=== PATIENT | male | born 1980 | race Caucasian/White ===

== ENCOUNTER 2020-09-01 14:21 | Emergency (ER) | payer OTHER, SELFPAY ==
--- NOTE | ~2020-09-01 | XR_ITS ---
XR finger 4th RT min 2V 09/01/2020 14:38 Indication: Right fourth finger pain after trauma Procedure: 3 views right fourth finger Comparison: No prior studies for comparison. Findings: There is minimally displaced comminuted tuft fracture right fourth distal phalanx. There is associated soft tissue swelling. No foreign bodies. Impression: 1: Minimally displaced comminuted tuft fracture right fourth distal phalanx. Reviewed, dictated and finalized at location A. Impression: 1: Minimally displaced comminuted tuft fracture right fourth distal phalanx.
[2020-09-01 14:27] VITALS: BP 160/91; PULSE 101; RESP 16; TEMP 36.1; O2SAT 98
--- NOTE | 2020-09-01 14:29 | ED.WOUNDLAC ---
HPI - Wound/Laceration General Chief Complaint: Wound/Laceration Stated Complaint: cut right fourth finger Time Seen by Provider: 09/01/20 14:25 Source: patient, RN notes reviewed and old records reviewed Mode of arrival: ambulatory Limitations: no limitations History of Present Illness HPI narrative: 40 year old male who presents to [facility] with complaints of getting his right 4th finger caught in a hinge of a boat ladder 20 minutes prior to arrival.Patient has swelling to the distal aspect of his right 4th finger with subungual hematoma noted to distal nail, 1 cm laceration to distal fat pad region. Patient very diaphoretic upon arrival stating pain to his finger 10/10, has not taken any OTC medication, towel wrapped around his right 4th finger with moderate of bleeding noted. Patient is right hand dominate and reports that his tetanus shot is not up to date. Onset (ago): minute(s) (20 minutes prior to arrival) Place: work Patient tetanus UTD: No Context: accidental Associated symptoms: pain Treatments prior to arrival: bandage Related Data Allergies Allergy/AdvReac Type Severity Reaction Status Date / Time No Known Allergies Allergy Mild Verified 09/01/20 14:34 Review of Systems Review of Systems: Narrative: CONSTITUTIONAL: Denies fever, chills, or sweats. EYES: Denies visual changes, redness, or discharge. ENT: Denies rhinorrhea, congestion, sore throat, or otalgia. CARDIOVASCULAR: Denies chest pain, palpitations, or edema. RESPIRATORY: Denies cough or dyspnea. GASTROINTESTINAL: Denies abdominal pain, nausea, vomiting, or diarrhea. GENITOURINARY: Denies dysuria or hematuria. SKIN: Denies rash or itching.laceration to distal fat fat pad region of 4th finger, subungual hematoma to nail with swelling and bruising distal finger. MUSCULOSKELETAL: Denies back pain, joint pain, or myalgia.Pain to the tip of right 4th finger NEUROLOGIC: Denies headache, numbness, or weakness. PSYCHIATRIC: Positive history of anxiety or depression. All systems reviewed & are unremarkable except as noted in HPI and below PMFSH Past Medical History Medical History (Updated 09/01/20 @ 15:43 by Nellie Lux NP) Ankle fracture Anxiety Right arm fracture Surgical History Surgical History (Updated 09/01/20 @ 14:36 by Nellie Lux NP) History of open heart surgery age 8 atrial septal defect Family History Family History (Updated 09/01/20 @ 17:03 by Nellie Lux NP) Father Cerebrovascular accident Sibling Hypertension Mother Breast cancer Social History Social History (Updated 09/01/20 @ 16:13 by Nellie Lux NP) Smoking status: Never smoker Alcohol intake: current Alcohol use details: seldom Substance use: former Substance use type: crack/cocaine and opiates Living arrangements: with family Gender identity (if verbalized by the patient): Male Comments At time of signature, agree with nursing past medical, surgical, social and family history. There is no relevant family history pertinent to the presenting complaint Exam Narrative: Exam Narrative: GENERAL: Well-appearing, well-nourished, and in no acute distress. HEAD: Normocephalic, atraumatic. EYES: PERRLA and EOMI. ENT: Nares clear, no rhinorrhea or epistaxis. Mucous membranes moist. NECK: Supple. no lymphadenopathy CHEST: Clear to auscultation. No respiratory distress. HEART: Regular rate and rhythm. No murmur heard. Normal peripheral pulses. ABDOMEN: Soft, nontender, nondistended, normal active bowel sounds. EXTREMITIES: Normal range of motion. No edema. SKIN: Warm, dry, no rash.1cm laceration to distal tip of right 4th finger, contusion with swelling and bruising to 4th right finger with subungual hematoma present to nail, strong right radial pulse present, pain to distal region of right 4th finger. hand is warm with no tingling or numbness to his right 4th finger voiced. NEURO: No focal deficits. Alert and oriented x3. Course V
[2020-09-01] MEDS: TETANUS,DIPHTHERIA,AC PERTUSSIS ADULT (0.5 ML) BOOSTRIX IM (15:20)
[2020-09-01] MEDS: cefTRIAXone 1 GM VIAL IM (15:41)
[2020-09-01] MEDS: LIDOCAINE HCL 1% LOCAL INJ 20 ML VIAL 2.1 ML IM (15:42)
== END 2020-09-01 16:03 | disposition home or self-care (01) ==
PROVIDERS: Emergency Provider Registered Nurse
DX: S62.634B Displaced fracture of distal phalanx of right ring finger, initial encounter for open fracture (principal); S60.141A Contusion of right ring finger with damage to nail, initial encounter; X58.XXXA Exposure to other specified factors, initial encounter; Z23 Encounter for immunization
CPT/HCPCS: 12001; 11740; 29130; 73140; 90471; 90715; 96372; 99213; G0463; J0696

== ENCOUNTER 2021-08-01 01:27 | Emergency (ER) | payer OTHER, SELFPAY ==
[2021-08-01 01:45] VITALS: BP 145/102; PULSE 117; RESP 20; TEMP 37; O2SAT 98
--- NOTE | 2021-08-01 01:48 | ED.NAVMDI ---
HPI - Nausea/Vomiting/Diarrhea General Chief complaint: Nausea/Vomiting/Diarrhea Stated complaint: n/v Time Seen by Provider: 08/01/21 01:37 Source: patient Mode of arrival: ambulatory Limitations: no limitations History of Present Illness HPI Narrative: Patient is a 41-year-old male complaining of nausea vomiting for the past 3 to 4 days. Patient describes his vomitus is nonbilious nonbloody. Patient states that he was having abdominal discomfort, lower earlier but now resolved. Denies any chest pain, shortness of breath, diarrhea, urinary symptoms, fever or chills Related Data Allergies Allergy/AdvReac Type Severity Reaction Status Date / Time No Known Allergies Allergy Mild Verified 09/01/20 14:34 Review of Systems Review of Systems: All systems reviewed & are unremarkable except as noted in HPI and below Constitutional: Constitutional: Denies body ache(s), Denies chills, Denies excessive sweating, Denies fatigue, Denies fever(s), Denies headache(s), Denies lethargy, Denies malaise, Denies weakness and Denies weight loss Eyes: Eyes: Denies blurry vision, Denies change in vision and Denies loss of vision ENT: Denies dizziness, Denies ear discharge, Denies headache(s), Denies lip swelling, Denies epistaxis, Denies nasal congestion, Denies neck pain, Denies throat swelling and Denies tongue swelling Cardiovascular: Cardiovascular: Denies chest pain, Denies chest pain at rest, Denies chest pain with activity, Denies diaphoresis, Denies rapid heart rate, Denies edema, Denies irregular heart rhythm, Denies lightheadedness, Denies palpitations, Denies dyspnea and Denies dyspnea on exertion Respiratory: Respiratory: Denies chest congestion, Denies cough, Denies hemoptysis, Denies dyspnea and Denies dyspnea on exertion Gastrointestinal: Gastrointestinal: Denies abdominal pain, Denies melena, Denies hematochezia, Denies diarrhea and Denies hematemesis Musculoskeletal: Musculoskeletal: Denies abnormal gait, Denies deformity, Denies joint swelling, Denies limited range of motion, Denies neck pain and Denies numbness Neurologic: Denies Abnormal speech present, Denies abnormal gait, Denies confusion, Denies dizziness, Denies headache(s), Denies focal weakness, Denies loss of vision, Denies numbness, Denies Other visual disturbances, Denies Sensory deficit (Neuro) and Denies weakness Psychiatric: Psychiatric: Denies confusion, Denies depression, Denies auditory hallucinations, Denies homicidal ideation and Denies suicidal ideation Endocrine: Endocrine: Denies cold intolerance, Denies excessive sweating, Denies fatigue, Denies heat intolerance and Denies palpitations Hematologic/Lymphatic: Hematologic/Lymphatic: Denies easy bleeding and Denies easy bruising Allergic/Immunologic: Allergic/Immunologic: Denies lip swelling, Denies throat swelling and Denies tongue swelling PMFSH Past Medical History Medical History Ankle fracture Anxiety Right arm fracture Surgical History Surgical History History of open heart surgery age 8 atrial septal defect Family History Family History Father Cerebrovascular accident Sibling Hypertension Mother Breast cancer Social History Social History Smoking status: Never smoker Alcohol intake: current Alcohol use details: seldom Substance use: former Substance use type: crack/cocaine and opiates Gender identity (if verbalized by the patient): Male Exam Const: General: cooperative, healthy appearing, comfortable, no acute distress, well developed, alert and awake; No confusion Orientation/consciousness: oriented to person, oriented to place, oriented to time, patient oriented x3 and No confusion Limitations: no limitations HENMT: Head: normal to inspection,
[2021-08-01] MEDS: SODIUM CHLORIDE 0.9% IV 1,000 ML 999 ML IV CONT (01:58)
[2021-08-01] MEDS: ONDANSETRON INJ 4 MG/2 ML VIAL IV PUSH (01:58)
[2021-08-01 02:08] LABS: Basophils Absolute Auto 0.1 K/mm3 (0.0-0.1); Basophils Percent Auto 0.3 % (0.2-1.2); Eosinophils Percent Auto 0.1 % (0-4.4); Hematocrit 40.7 % (42.0-52.0); Hemoglobin 14.6 g/dL (14.0-18.0); Immature Granulocyte Absolute 0.04 K/mm3 (0.00-0.031); Immature Granulocyte Percent A 0.3 % (0-0.5); Lymphocytes Absolute Auto 1.27 K/mm3 (0.9-3.2); Lymphocytes Percent Auto 8.7 % (18.3-44.2); Mean Corpuscular HGB Conc 35.9 g/dl (32-36); Mean Corpuscular Hemoglobin 35.9 pg (26-34); Mean Platelet Volume 9.9 fl (7.4-10.4); Monocytes Absolute Auto 1.2 K/mm3 (0.1-0.6); Neutrophils Percent Auto 82.6 % (45.5-73.1); Platelet Count Result 364 k/mm3 (150-375); Red Blood Count 4.07 M/mm3 (4.6-6.20); White Blood Count 14.6 K/mm3 (4.5-10.0)
[2021-08-01] MEDS: FAMOTIDINE 20 MG TABLET 40 MG PO (02:18)
[2021-08-01 02:38] LABS: Alanine Aminotransferase 45 U/L (4-50); Albumin Level 4.8 g/dL (3.5-5.1); Alkaline Phosphatase 87 U/L (38-126); Anion Gap 12 mmol/L (8-16); Aspartate Amino Transferase 51 U/L (17-59); Bilirubin,Total 0.8 mg/dL (0.2-1.3); Blood Urea Nitrogen 11 mg/dL (9-20); Calcium 9.6 mg/dL (8.4-10.2); Carbon Dioxide 31 mmol/L (22-30); Chloride 97 mmol/L (98-107); Estimated CRCL calculation 140 ml/min; Estimated Glomerular Filt Rate > 60; Glucose 132 mg/dL (65-110); Lipase 26 U/L (23-300); Potassium 3.4 mmol/L (3.4-5.0); Sodium 140 mmol/L (137-145)
[2021-08-01 03:29] VITALS: BP 128/79; PULSE 80; RESP 18; O2SAT 100
[2021-08-01] MEDS: PANTOPRAZOLE SODIUM IV 40 MG VIAL IV PUSH (04:01)
[2021-08-01 04:09] VITALS: BP 126/87; PULSE 94; RESP 16; O2SAT 100
== END 2021-08-01 04:10 | disposition home or self-care (01) ==
PROVIDERS: Emergency Provider Emergency Medicine
DX: R11.2 Nausea with vomiting, unspecified (principal)
CPT/HCPCS: 36415; 80053; 83690; 85025; 96361; 96374; 96375; 99284; A9270; C9113; J2405; J7030

== ENCOUNTER 2022-06-01 13:50 | Emergency (ER) | payer BC, SELFPAY ==
[2022-06-01 14:01] VITALS: BP 138/98; PULSE 114; RESP 20; TEMP 35.9; O2SAT 98
[2022-06-01] MEDS: ONDANSETRON HCL ODT 4 MG TABLET SUBLINGUAL (14:15)
--- NOTE | 2022-06-01 14:26 | ED.NAVMDI ---
HPI - Nausea/Vomiting/Diarrhea General Chief complaint: Nausea/Vomiting/Diarrhea Stated complaint: Nausea/Vomiting Time Seen by Provider: 06/01/22 14:10 Source: patient Mode of arrival: ambulatory Limitations: no limitations History of Present Illness HPI Narrative: 42-year-old male presents with complaint of nausea vomiting for the past 3 hours. Reports for the past 3 days he has been started to feel nauseated when eating. Reports that he has a similar episode of this happening 6 months ago. States that he has been getting indigestion for the past 6 months and has been treating it at home with Nexium and Pepcid. Does not have a primary care physician. States when he was seen in the ER he was given Zofran to treat nausea and he has ran out. Denies abdominal pain. He reports when he was unable to drink water today due to vomiting he became concerned and came to the [facility] for a refill for his Zofran. Patient is well-appearing. No vomiting while at [facility]. All systems reviewed and negative except as noted above. Related Data Allergies Allergy/AdvReac Type Severity Reaction Status Date / Time No Known Allergies Allergy Mild Verified 06/01/22 14:01 Review of Systems Review of Systems: CONSTITUTIONAL: Denies fever, chills, or sweats. EYES: Denies visual changes, redness, or discharge. ENT: Denies rhinorrhea, congestion, sore throat, or otalgia. CARDIOVASCULAR: Denies chest pain, palpitations, or edema. RESPIRATORY: Denies cough or dyspnea. GASTROINTESTINAL: Denies abdominal pain . Reports nausea, vomiting, indigestion. Denies diarrhea. GENITOURINARY: Denies dysuria or hematuria. SKIN: Denies rash or itching. MUSCULOSKELETAL: Denies back pain, joint pain, or myalgia. NEUROLOGIC: Denies headache, numbness, or weakness. PSYCHIATRIC: Denies anxiety or depression. All other systems reviewed are negative, except as documented in HPI. [facility] Past Medical History Medical History Ankle fracture Anxiety Right arm fracture Surgical History Surgical History History of open heart surgery age 8 atrial septal defect Family History Family History Father Cerebrovascular accident Sibling Hypertension Mother Breast cancer Social History Social History Smoking status: Never smoker Alcohol intake: current Alcohol use details: seldom Substance use: former Substance use type: crack/cocaine and opiates Living arrangements: with family Gender identity (if verbalized by the patient): Male Comments At time of signature, agree with nursing past medical, surgical, social and family history. There is no relevant family history pertinent to the presenting complaint. Exam Narrative: GENERAL: This is a well-nourished, well-developed patient, in no apparent distress. HEAD: normocephalic, atraumatic. EYES: PERRL. Sclera clear/white. Vision is grossly intact. EARS: External ears normal NOSE: External nose normal NECK: Neck supple, non-tender without lymphadenopathy, masses or thyromegaly. CARDIOVASCULAR: Regular rate and rhythm without murmurs, gallops, or rubs. RESPIRATORY: Clear to auscultation. Breath sounds equal bilaterally. No wheezes, rales, or rhonchi. GASTROINTESTINAL: Abdomen soft, non-tender, nondistended. Bowel sounds are active. No hepato-splenomegaly, or palpable masses. No guarding. SKIN: warm, Dry, intact with no suspicious lesions or rash, good texture and turgor. NEURO: awake, alert, and oriented to person, place and time. There were no obvious focal neurologic abnormalities. EXTREMITIES: No joint tenderness, effusion, or edema noted. Course Course Level of Care: Express Care Visit Reevaluation(s) Reevaluation #1: Pt given PO challenge after zofran and was abl
== END 2022-06-01 14:28 | disposition home or self-care (01) ==
PROVIDERS: Emergency Provider Nurse Practitioner Family
DX: K30 Functional dyspepsia (principal); R11.2 Nausea with vomiting, unspecified
CPT/HCPCS: 99213; A9270; G0463

== ENCOUNTER 2022-10-20 23:29 | Emergency (ER) | payer BC, SELFPAY ==
--- NOTE | ~2022-10-20 | US_ITS ---
EXAMINATION: US scrotum doppler DATE: 10/21/2022 01:58 INDICATION: Left testicular pain TECHNIQUE: Testicular sonogram utilizing grayscale and Doppler COMPARISON: None. FINDINGS: The right testis measures 4.4 x 2.2 x 2.9 cm. The left testis measures 3.9 x 2.0 x 2.9 cm. There is normal vascular flow to both testes. The right epididymis is normal with normal vascular sawyer w. The left epididymis is normal with normal vascular flow. There is no varicocele or hydrocele. IMPRESSION: 1. No sonographic correlate for the patient's symptoms. Reviewed, dictated and finalized at location A.
--- NOTE | ~2022-10-20 | CT_ITS ---
EXAMINATION: CT abdomen pelvis wo con DATE: 10/21/2022 02:24 INDICATION: Left lower quadrant pain TECHNIQUE: Computed tomography (CT) of the abdomen and pelvis was performed without intravenous contr ast. The dose-length product (DLP) was 1640.13 mGy-cm. Automated exposure control and iterative recon struction technique were employed. COMPARISON: 06/26/2010 FINDINGS: The lung bases are clear. The heart size is normal. Moderate bilateral gynecomastia is note d. The liver is diffusely low in attenuation when compared with the spleen, consistent with hepatic s teatosis. The spleen, pancreas, and adrenal glands are normal. There is mild distention of the gallbl adder which may be due to fasting state. The right kidney is unremarkable. There is an 8 mm nonobstru cting stone of the left kidney lower pole. There are no stones in the ureters or bladder. No hydronep hrosis or hydroureter. No pathologically enlarged abdominal or pelvic lymph nodes are identified. No free intraperitoneal gas or evidence of bowel obstruction. The appendix is normal. IMPRESSION: 1. Nonobstructing left nephrolithiasis. Reviewed, dictated and finalized at location A.
[2022-10-20 23:35] VITALS: BP 154/99; PULSE 111; RESP 18; TEMP 36.8; O2SAT 97
[2022-10-21 00:56] VITALS: BP 144/103; PULSE 106; RESP 15; TEMP 36.6; O2SAT 99
[2022-10-21 01:04] LABS: Appearance Urine Clear (Clear); Bacteria Urine None Seen /hpf; Bilirubin Urine 1+ (Negative); Blood Urine Negative (Negative); Color Urine Dark Yellow (Yellow); Glucose Urine UA Negative (Negative); Ketones Urine Trace mg/dL (Negative); Leukocyte Esterase Ur Trace LEU/UL (Negative); Need Manual Microscopic Reviewed; Nitrate Urine Negative (Negative); Non Pathogenic Casts 0-2; Protein Urine Trace mg/dL (Negative); RBC Urine 0-2 /hpf (0-2); Specific Grav Ur 1.022 (1.001-1.035); Squamous Epithelial Cell Urine None seen /hpf (Few); pH Urine 6.5 (5.0-9.0)
[2022-10-21 01:08] LABS: Add Urine Microscopic? YES
--- NOTE | 2022-10-21 01:28 | ED.GENADULT ---
HPI - General Adult General Chief complaint: Urogenital-Male Stated complaint: testicular pain Time Seen by Provider: 10/21/22 01:04 History of Present Illness HPI narrative: Patient is a 42-year-old gentleman who presents the emergency department with chief complaint of left testicle pain. Patient reports that he has noticed pain in his left testicle and scrotal area reports that the area is swollen and tender to touch patient reports the pain is improved whenever he puts pressure on the area. The patient states he is concerned he may have a torsion or hernia. Related Data Allergies Allergy/AdvReac Type Severity Reaction Status Date / Time No Known Allergies Allergy Mild Verified 06/01/22 14:01 Review of Systems Review of Systems: A 10 system review of systems was completed on the patient and is negative except for what is stated in the HPI. Nursing and ancillary documentation was reviewed. [facility] Past Medical History Medical History Ankle fracture Anxiety Right arm fracture Surgical History Surgical History History of open heart surgery age 8 atrial septal defect Family History Family History Father Cerebrovascular accident Sibling Hypertension Mother Breast cancer Social History Social History Smoking status: Never smoker Alcohol intake: current Alcohol use details: seldom Substance use: former Substance use type: crack/cocaine and opiates Living arrangements: with family Gender identity (if verbalized by the patient): Male Exam Narrative: GENERAL: Well-appearing, well-nourished, and in no acute distress. HEAD: Normocephalic, atraumatic. EYES: PERRLA and EOMI. ENT: Nares clear, no rhinorrhea or epistaxis. Mucous membranes moist. NECK: Supple. CHEST: Clear to auscultation. No respiratory distress. HEART: Regular rate and rhythm. No murmur heard. Normal peripheral pulses. ABDOMEN: Soft, nontender, nondistended, normal active bowel sounds. : EXTREMITIES: Normal range of motion. No edema. SKIN: Warm, dry, no rash. NEURO: No focal deficits. Alert and oriented x3. PSYCH: Normal mood and affect. Course Vital Signs Vital signs: Vital Signs Temperature 36.8 C 10/20/22 23:35 Pulse Rate 111 H 10/20/22 23:35 Respiratory Rate 18 10/20/22 23:35 Blood Pressure 154/99 H 10/20/22 23:35 Pulse Oximetry 97 10/20/22 23:35 Oxygen Delivery Room Air 10/20/22 23:35 Temperature 36.6 C 10/21/22 00:56 Pulse Rate 82 10/21/22 05:17 Respiratory Rate 15 10/21/22 05:17 Blood Pressure 148/96 H 10/21/22 05:17 Pulse Oximetry 97 10/21/22 05:17 Oxygen Delivery Room Air 10/20/22 23:35 Medical Decision Making MDM Narrative Medical decision making narrative: Differential diagnosis includes testicular torsion, epididymitis, UTI, hernia CT scan of the abdomen pelvis showed no evidence of acute abnormality Ultrasound of the scrotum showed no evidence of torsion no evidence of epididymitis Laboratory studies are within normal limits urinalysis showed 6-10 white blood cells in the urine Patient will be treated with antibiotics for possible UTI Patient was placed on pain medications and muscle relaxers Vital Signs Vital Signs: Vital Signs Temperature 36.8 C 10/20/22 23:35 Pulse Rate 111 H 10/20/22 23:35 Respiratory Rate 18 10/20/22 23:35 Blood Pressure 154/99 H 10/20/22 23:35 Pulse Oximetry 97 10/20/22 23:35 Oxygen Delivery Room Air 10/20/22 23:35 Temperature 36.6 C 10/21/22 00:56 Pulse Rate 82 10/21/22 05:17 Respiratory Rate 15 10/21/22 05:17 Blood Pressure 148/96 H 10/21/22 05:17 Pulse Oximetry 97 10/21/22 05:17 Oxygen Delivery Room Air 10/20/22 23:35
[2022-10-21] MEDS: SODIUM CHLORIDE 0.9% IV 1,000 ML 999 ML IV CONT ×2 (01:32→05:13)
[2022-10-21 01:34] LABS: Basophils Absolute Auto 0.1 K/mm3 (0.0-0.1); Basophils Percent Auto 1.2 % (0.2-1.2); Eosinophils Absolute Auto 0.6 K/mm3 (0-0.3); Eosinophils Percent Auto 6.3 % (0-4.4); Hematocrit 42.6 % (42.0-52.0); Hemoglobin 14.9 g/dL (14.0-18.0); Immature Granulocyte Absolute 0.06 K/mm3 (0.00-0.031); Immature Granulocyte Percent A 0.6 % (0-0.5); Lymphocytes Absolute Auto 2.13 K/mm3 (0.9-3.2); Lymphocytes Percent Auto 22.3 % (18.3-44.2); Mean Corpuscular Hemoglobin 33.3 pg (26-34); Mean Corpuscular Volume 95.1 fl (80-100); Mean Platelet Volume 9.6 fl (7.4-10.4); Monocytes Absolute Auto 0.8 K/mm3 (0.1-0.6); Monocytes Percent Auto 8.6 % (2.6-8.5); Neutrophils Absolute Auto 5.8 K/mm3 (1.3-6.7); Platelet Count Result 278 k/mm3 (150-375); Red Blood Count 4.48 M/mm3 (4.6-6.20); Red Cell Distribution Width 12.5 % (11.5-14.5); White Blood Count 9.6 K/mm3 (4.5-10.0)
[2022-10-21] MEDS: ONDANSETRON INJ 4 MG/2 ML VIAL IV PUSH (01:37)
[2022-10-21] MEDS: MORPHINE SULFATE (*CRX) 4 MG/ML INJ IV PUSH (01:38)
[2022-10-21 01:52] LABS: Alanine Aminotransferase 31 U/L (6-50); Albumin Level 4.2 g/dL (3.5-5.1); Alkaline Phosphatase 71 U/L (38-126); Anion Gap 5 mmol/L (8-16); Aspartate Amino Transferase 45 U/L (17-59); Bilirubin,Total 0.9 mg/dL (0.2-1.3); Blood Urea Nitrogen 5 mg/dL (9-20); Calcium 8.7 mg/dL (8.4-10.2); Carbon Dioxide 34 mmol/L (22-30); Chloride 97 mmol/L (98-107); Estimated CRCL calculation 139 ml/min; Estimated Glomerular Filt Rate > 60; Glucose 100 mg/dL (65-110); Lipase 20 U/L (23-300); Potassium 3.7 mmol/L (3.4-5.0); Sodium 136 mmol/L (137-145)
[2022-10-21] MEDS: HYDROmorphone HCL INJ (*CRX) 1 MG/ML SYR IV PUSH (02:35)
[2022-10-21 02:38] VITALS: BP 144/86; PULSE 96; RESP 15; O2SAT 100
[2022-10-21 03:47] VITALS: BP 159/97; PULSE 87; RESP 15; O2SAT 93
--- NOTE | 2022-10-21 05:08 | PC.NURSE ---
Patient stated that he felt dehydrated. Notified Dr. Sloan who advised to hang another bag of 1,000mL of normal saline.
[2022-10-21 05:17] VITALS: BP 148/96; PULSE 82; RESP 15; O2SAT 97
[2022-10-21 07:44] VITALS: BP 142/74; PULSE 80; RESP 16; O2SAT 98
== END 2022-10-21 07:44 | disposition home or self-care (01) ==
PROVIDERS: Emergency Provider Emergency Medicine
DX: N39.0 Urinary tract infection, site not specified (principal); N50.82 Scrotal pain
CPT/HCPCS: 36415; 74176; 76870; 80053; 81001; 83690; 85025; 87086; 87491; 87591; 93976; 96361; 96374; 96375; 99284; J1170; J2270; J2405; J7030

== ENCOUNTER 2024-05-13 03:19 | Emergency (ER) | payer BC, SELFPAY ==
--- NOTE | ~2024-05-13 | CT_ITS ---
EXAMINATION: CT abdomen pelvis w con DATE: 05/13/2024 11:58 INDICATION: Lower abdominal pain. Bloating. TECHNIQUE: Computed tomography (CT) of the abdomen and pelvis was performed with 100 mL Omnipaque 350 intravenous contrast. Automated exposure control and iterative reconstruction technique were employe d. The dose-length product was 1385.11 mGy-cm. COMPARISON: CT abdomen and pelvis 10/21/2022 FINDINGS: The visualized portions of the lung bases demonstrate minimal atelectasis. No pleural effus ion. The heart size is normal. No pericardial effusion. There is bilateral gynecomastia. The liver, g allbladder, spleen, pancreas, and adrenal glands are normal. There are cysts in the kidneys measuring up to 12 mm on the right. There are 6 mm and 7 mm stones in left kidney. There are no dilated loops of bowel. The appendix is normal. There are no pathologically enlarged lymph nodes. There is no free intraperitoneal fluid. There is mild thoracic and lumbar spondylosis. There is mild chronic anterior wedging of multiple thoracic vertebral bodies. IMPRESSION: 1. Nonobstructing left kidney stones. Reviewed, dictated and finalized at location A. [employer]ATE COMPLIANCE MANAGER
[2024-05-13 03:27] VITALS: BP 139/78; PULSE 81; RESP 16; TEMP 36.3; O2SAT 100
[2024-05-13 07:12] VITALS: BP 138/81; PULSE 81; RESP 16; TEMP 36.4; O2SAT 100
[2024-05-13 08:53] VITALS: BP 103/54; PULSE 76; RESP 16; TEMP 36.6; O2SAT 100
[2024-05-13 09:01] LABS: Basophils Percent Auto 0.5 % (0.2-1.2); Eosinophils Absolute Auto 0.1 K/mm3 (0-0.3); Eosinophils Percent Auto 0.9 % (0-4.4); Hematocrit 41.7 % (42.0-52.0); Hemoglobin 14.9 g/dL (14.0-18.0); Immature Granulocyte Absolute 0.03 K/mm3 (0.00-0.031); Immature Granulocyte Percent A 0.4 % (0-0.5); Lymphocytes Absolute Auto 1.53 K/mm3 (0.9-3.2); Lymphocytes Percent Auto 18.9 % (18.3-44.2); Mean Corpuscular HGB Conc 35.7 g/dl (32-36); Mean Corpuscular Hemoglobin 34.2 pg (26-34); Mean Corpuscular Volume 95.6 fl (80-100); Mean Platelet Volume 10.4 fl (7.4-10.4); Monocytes Absolute Auto 0.7 K/mm3 (0.1-0.6); Monocytes Percent Auto 9.1 % (2.6-8.5); Neutrophils Absolute Auto 5.7 K/mm3 (1.3-6.7); Neutrophils Percent Auto 70.2 % (45.5-73.1); Platelet Count Result 226 k/mm3 (150-375); Red Blood Count 4.36 M/mm3 (4.6-6.20); White Blood Count 8.1 K/mm3 (4.5-10.0)
--- NOTE | 2024-05-13 09:08 | ED_ITS ---
HPI - Nausea/Vomiting/Diarrhea General Chief complaint: Nausea/Vomiting/Diarrhea Stated complaint: vomiting Time Seen by Provider: 05/13/24 08:46 History of Present Illness HPI Narrative: 43-year-old male with a reported history of ASD closure at 8 y/o presents to the ED for 2 days of nausea and vomiting. Patient reports subjective fevers and diffuse abdominal discomfort but no focal abdominal pain. He denies diarrhea, dysuria or hematuria, prior abdominal surgeries. Last bowel movement was yesterday normal. No cough or congestion. Related Data Allergies Allergy/AdvReac Type Severity Reaction Status Date / Time No Known Allergies Allergy Mild Verified 05/13/24 12:13 Review of Systems 2 Review of Systems: All systems reviewed & are unremarkable except as noted in HPI and below PMFSH Past Medical History Medical History Right arm fracture Ankle fracture Anxiety Surgical History Surgical History History of open heart surgery age 8 atrial septal defect Family History Family History Father Cerebrovascular accident Sibling Hypertension Mother Breast cancer Social History Social History Smoking status: Never smoker Alcohol intake: current Alcohol use details: seldom Substance use: former Substance use type: crack/cocaine and opiates Living arrangements: with family Gender identity (if verbalized by the patient): Male Exam 2 Narrative: GENERAL: Well-appearing, well-nourished, and in no acute distress. HEAD: Normocephalic, atraumatic. EYES: PERRLA and EOMI. ENT: Nares clear, no rhinorrhea or epistaxis. Mucous membranes dry NECK: Supple. CHEST: Clear to auscultation. No respiratory distress. HEART: Regular rate and rhythm. No murmur heard. Normal peripheral pulses. ABDOMEN: Soft, nontender, nondistended, normal active bowel sounds. No rebound, guarding or rigidity. No CVA tenderness EXTREMITIES: Normal range of motion. No edema. SKIN: Warm, dry, no rash. NEURO: No focal deficits. Alert and oriented x3 Course Vital Signs Vital signs: Vital Signs Temperature 97.4 F L 05/13/24 03:27 Pulse Rate 81 05/13/24 03:27 Respiratory Rate 16 05/13/24 03:27 Blood Pressure 139/78 05/13/24 03:27 Pulse Oximetry 100 05/13/24 03:27 Oxygen Delivery Room Air 05/13/24 03:27 Temperature 97.7 F 05/13/24 11:00 Pulse Rate 75 05/13/24 12:15 Respiratory Rate 16 05/13/24 12:15 Blood Pressure 143/90 H 05/13/24 12:15 Pulse Oximetry 100 05/13/24 12:15 Oxygen Delivery Room Air 05/13/24 03:27 MDM - Nausea/Vomiting/Diarrhea MDM Narrative Medical decision making narrative: 43-year-old male presents to the emergency department for nausea and vomiting for 2 days. Triage vitals are stable. Patient is afebrile and nontoxic on exam. Abdomen is soft and nontender. Mucous membranes are dry, fluids ongoing. Lab work shows no leukocytosis or anemia. Chemistries with hypokalemia of 3.3 which is been orally repleted. Urinalysis does show 6-10 wbc's, 35 RBCs and 1+ leuk esterase, however he has no urinary complaints. Urine culture pending. Lipase and magnesium are normal. Patient was updated on workup. Suspect viral gastroenteritis. He was given a L of fluids and tolerating p.o. intake. Upon re-evaluation at time of discharge patient is now reporting increasing lower abdominal pain and bloating. Will add on CT. He is also reporting acid reflux. Pepcid and GI cocktail provided. CT obtained which shows nonobstructing stones in the left kidneys. Patient reports improvement after the Pepcid and GI cocktail but does state he still feels nauseous and had an episode of emesis after the CT scan. Reglan provided. He is tolerating p.o. intake. Presentation consistent with viral gastroenteritis. Feel he is safe to be discharged home. Zofran, Pepcid and ibuprofen sent to pharmacy. Discussed supportive care increase hydration as well as strict ED return precautions. He is agreeable with plan verbalized understanding. Discharged in stable condition. Lab Data 05/13/24 08:55 05/13/24 08:55 Labs: Lab Results 05/13/24 05/13/24 Range/Units 08:55 11:18 WBC 8.1 (4.5-10.0) K/mm3 RBC 4.36 L (4.6-6.20) M/mm3 Hgb 14.9 (14.0-18.0) g/dL Hct 41.7 L (42.0-52.0) % MCV 95.6 (80-100) fl MCH 34.2 H (26-34) pg MCHC 35.7 (32-36) g/dl RDW 12.0 (11.5-14.5) % Plt Count 226 (150-375) k/mm3 MPV 10.4 (7.4-10.4) fl Immature Gran % (Auto) 0.4 (0-0.5) % Neut % (Auto) 70.2 (45.5-73.1) % Lymph % (Auto) 18.9 (18.3-44.2) % Dale % (Auto) 9.1 H (2.6-8.5) % Eos % (Auto) 0.9 (0-4.4) % Baso % (Auto) 0.5 (0.2-1.2) % Lymph # (Auto) 1.53 (0.9-3.2) K/mm3 Dale # (Auto) 0.7 H (0.1-0.6) K/mm3 Eos # (Auto) 0.1 (0-0.3) K/mm3 Baso # (Auto) 0.0 (0.0-0.1) K/mm3 Abs Immat Gran (auto) 0.03 (0.00-0.031) K/mm3 Absolute Neuts (auto) 5.7 (1.3-6.7) K/mm3 Absolute Nucleated RBC 0.000 (0.0-0.012) K/mm3 Nucleated RBC % 0.0 (0.0-0.2) % Sodium 135 L (137-145) mmol/L Potassium 3.3 L (3.4-5.0) mmol/L Chloride 104 (98-107) mmol/L Carbon Dioxide 27 (22-30) mmol/L Anion Gap 4 (4-12) mmol/L BUN 10 D (9-20) mg/dL Creatinine 0.70 (0.7-1.3) mg/dL Estim Creat Clear Calc 146 ml/min Estimated GFR > 60 (59 - ) Glucose 101 (65-110) mg/dL Calcium 8.8 (8.4-10.2) mg/dL Magnesium 1.9 (1.6-2.3) mg/dL Total Bilirubin 1.3 (0.2-1.3) mg/dL AST 30 (17-59) U/L ALT 29 (6-50) U/L Alkaline Phosphatase 88 (38-126) U/L Total Protein 7.0 (6.3-8.2) g/dL Albumin 4.2 (3.5-5.1) g/dL Lipase 25 (23-300) U/L Urine Color Yellow (Yellow) Urine Appearance Clear (Clear) Urine pH 6.5 (5.0-9.0) Ur Specific Hewitt 1.017 (1.001-1.035) Urine Protein Negative (Negative) mg/dL Urine Glucose (UA) Negative (Negative) mg/dL Urine Ketones 2+ H (Negative) mg/dL Ur Blood (Man) Negative (Negative) Urine Nitrate Negative (Negative) Urine Bilirubin Negative (Negative) Urine Urobilinogen 2.0 H (<2.0) mg/dL Leukocyte Esterase Rfl 1+ H (Negative) ALLYSON/UL Urine RBC 3-5 H (0-2) /hpf Urine WBC 6-10 H (0-3) /hpf Ur Squamous Epith Cells None seen (Few) /hpf Urine Bacteria None seen /hpf Urine Casts 0-2 Discharge Plan Discharge Clinical Impression: Gastroenteritis Patient Disposition: Home, Self-Care Condition: Stable Instructions: Antibiotic Form, Gastroenteritis (ED) Additional Instructions: Drink plenty of fluids including water, Gatorade and Pedialyte. Use ondansetron as needed for nausea, ibuprofen as needed for pain and Pepcid as needed for acid reflux. Follow up with her primary care provider. Return to the emergency department if you develop a fever, your unable to tolerate food or fluids, focal abdominal pain or other concerning symptoms. Patient Language: Luxembourgish Prescriptions: New ondansetron 4 mg tablet,disintegrating 4 mg PO Q8H Qty: 14 0RF famotidine 20 mg tablet 20 mg PO DAILY Qty: 14 0RF ibuprofen 800 mg tablet 800 mg PO Q6H PRN (Reason: pain) Qty: 14 0RF No Action famotidine [Pepcid] 20 mg tablet 20 mg PO BID 30 Days Qty: 60 0RF ondansetron 4 mg tablet,disintegrating 4 mg PO Q8H PRN (Reason: nausea and vomiting) Qty: 20 0RF doxycycline hyclate 100 mg tablet 100 mg PO BID Qty: 14 0RF hydrocodone-acetaminophen 5-325 mg tablet 1 tablet PO Q6H PRN (Reason: pain) 3 Days Qty: 12 0RF cyclobenzaprine 10 mg tablet 10 mg PO TID PRN (Reason: muscle spasm) Qty: 21 0RF Follow-up/Referrals: Angelo Pelayo MD [Physician] - UNKNOWN,DOCTOR [Primary Care Provider] -
[2024-05-13 09:18] LABS: Alanine Aminotransferase 29 U/L (6-50); Albumin Level 4.2 g/dL (3.5-5.1); Alkaline Phosphatase 88 U/L (38-126); Anion Gap 4 mmol/L (4-12); Aspartate Amino Transferase 30 U/L (17-59); Bilirubin,Total 1.3 mg/dL (0.2-1.3); Blood Urea Nitrogen 10 mg/dL (9-20); Calcium 8.8 mg/dL (8.4-10.2); Carbon Dioxide 27 mmol/L (22-30); Chloride 104 mmol/L (98-107); Estimated CRCL calculation 146 ml/min; Estimated Glomerular Filt Rate > 60; Glucose 101 mg/dL (65-110); Lipase 25 U/L (23-300); Potassium 3.3 mmol/L (3.4-5.0); Sodium 135 mmol/L (137-145)
[2024-05-13 09:31] VITALS: BP 130/80; PULSE 74; RESP 16; TEMP 36.6; O2SAT 100
[2024-05-13] MEDS: SODIUM CHLORIDE 0.9% IV 1,000 ML 999 ML IV CONT (10:06)
[2024-05-13] MEDS: ONDANSETRON INJ 4 MG/2 ML VIAL IV PUSH (10:07)
[2024-05-13] MEDS: POTASSIUM CHLORIDE 20 MEQ PACKET (FOR LIQUID) PO (10:07)
[2024-05-13 10:13] LABS: Magnesium 1.9 mg/dL (1.6-2.3)
[2024-05-13 11:00] VITALS: BP 135/99; PULSE 76; RESP 16; TEMP 36.5; O2SAT 100
[2024-05-13 11:29] LABS: Add Urine Microscopic? YES; Appearance Urine Clear (Clear); Bacteria Urine None Seen /hpf; Bilirubin Urine Negative (Negative); Blood Urine Negative (Negative); Color Urine Yellow (Yellow); Glucose Urine UA Negative (Negative); Ketones Urine 2+ mg/dL (Negative); Leukocyte Esterase Ur 1+ LEU/UL (Negative); Nitrate Urine Negative (Negative); Non Pathogenic Casts 0-2; Protein Urine Negative (Negative); Specific Grav Ur 1.017 (1.001-1.035); Squamous Epithelial Cell Urine None Seen /hpf (Few); pH Urine 6.5 (5.0-9.0)
[2024-05-13] MEDS: BELLADONNA ALK/PHENOB ELIX 10 ML, MAG HYDROX/ALUMINUM HYD/SIMETH 30 ML, LIDOCAINE 2% VI... PO (12:14)
[2024-05-13] MEDS: FAMOTIDINE 20 MG/2 ML VIAL IV PUSH (12:14)
[2024-05-13 12:15] VITALS: BP 143/90; PULSE 75; RESP 16; O2SAT 100
[2024-05-13] MEDS: METOCLOPRAMIDE HCL INJ 10 MG/2 ML VIAL IV PUSH (13:06)
--- OUTSIDE RECORDS SUMMARY | 2024-05-20 20:58 | XMS_ITS | Continuity of Care Document ---
Author Organization [facility] Address [address] [place] [address] Phone Care Team Providers Care Blueprint Tracer Name Role Phone Randall Ibarra Unavailable Unavailable Procedures Procedure Date Eye Exam Established Pt Advance Directives Directive Yes / No Effective Date File Name No Information Encounters Encounter Description Practice Location Reason(s) For Visit Diagnoses Date Provider Providers Copied on Encounter [facility], [address], [place], [place], [id number], [place] tel:[phone] [facility] No Information [address] , [address], [place], [address], [place]. tel:[phone] Family History Family Member Type Diagnosis Age At Onset No Information Payers Payer name Insurance type Covered republican ID Authoriza tion(s) No Information Social History Type Description Quantity Date Captured Comments Sex Male Smoking Status No Information Chief Complaint And Reason For Visit No Information Reason For Referral Reason For Referral No Information History Of Present Illness Encounter Date Complaint History Of Prese nt Illness No Information Functional Status Date Functional Assessmen t No Information Instructions Date Instruction Additional Infor mation No Information Assessments Type Assessment Date No Information Patient Care Teams Name Effective Dates (start - stop) Status Members No Information
--- OUTSIDE RECORDS SUMMARY | 2024-05-20 20:58 | XMS_ITS | CONTINUITY OF CARE DOCUMENT ---
Author Name kiana bruno Address Unknown Organization [facility] Address [address] [place] [address] Phone [phone] Care Team Providers Care Curing Finisher Name Role Phone Dave Cobb MD Unavailable JR RAMOS, RASHMIN Unavailable JR RAMOS RASHMIN Unavailable [phone] PROBLEMS Condition Status Date Provider Notes Leg edema, bilateral active Dave Cobb MD Atrial septal defect-repaired (1997) active Dave oCbb MD Anxiety disorder active Dave Cobb MD Dizziness active Dave Cobb MD Other symptoms involving car diovascular system active Dave Cobb MD ENCOUNTERS Date Type Provider Location Encounter Diag nosis - In-person encounter Office Visit Dave Cobb MD [facility] Leg edema, bilateral - In-person encounter Office Visit Dave Cobb MD [facility] Other symptoms involving cardiovascular systemDizzinessAnxiety disorderAtrial septal defect-repaired (1997) VITAL SIGNS Date Observation Value Provider Body Mass Index (Ratio) 34.26 kg/m2 James Cobb MD blood pressure, resting No Mcgregor tomlin [place] blood pressure, diastolic 90 mm[Hg] Ma rsha [place] blood pressure, systolic 130 mm[Hg] Mar sha [place] respiratory rate E&M 16 /min Marianne Obando'Trent[place] oxygen saturation, oximetry 98 % Marianne RosalesTrenton pulse rate 78 /min Marianne Oband[place] weight E&M 232 [lb_av] Marianne Obando[place] height E&M 69 [in_i] Marianne Obando'[place] Body Mass Index (Ratio) 22.89 kg/m2 Anea jane Dion blood pressure, diastolic 82 mm[Hg] An eatris Dion blood pressure, systolic 123 mm[Hg] Ane atris Dion pulse rate 70 /min Aneatris Dion oxygen saturation, oximetry 98 % Aneatris Dion respiratory rate E&M 16 /min Aneatri s Dion weight E&M 155 [lb_av] Aneatris Dion height E&M 69 [in_i] Estefani Dion ALLERGIES No Known Drug Allergies HISTORY OF MEDICATION USE Medication Status Instructions Dates Provider Indications Com ments FUROSEMIDE 20 MG ORAL TABLET active 1 tablet daily Olive Lively METHADONE HCL SOLUTION active once daily Marianne GisellaMarlysTrenton VIAGRA 50 MG ORAL TABLET completed 1/2 tab prn - Marianne Gisella'Trenton DIAZEPAM TABLET completed 17.5 one tab daily - Marianne Obando'[place] SOCIAL HISTORY Date Observation Value Provider alcohol use, average drinks per day social Dave Cobb MD alcohol use yes Dave Cobb MD social history E&M Occupation: I [employer] P atient has never smoked. E Salma: socially (1 drink per week) Smoking History: P atient has never smoked. 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 Smoking History: P atient has never smoked. E Salma: socially (1 drink per week) Dave Cobb MD social history reviewed E&M [place]oks - no changes required Dave Cobb MD smoking status Never smoker Dave Cobb MD FAMILY HISTORY Family Member Condition Father Negative FH of Diabe jani, Hypertension, or Coronary Artery Disease Mother Negative FH of Diabe jani, Hypertension, or Coronary Artery Disease INSURANCE PROVIDERS Payer name Policy type / Coverage type [place] [employer] party ID [facility] Other [id number] ADVANCE DIRECTIVES Name Date DISCUSSED - NO DECISION MADE TREATMENT PLAN Date Name Performer Cardiology:WIll do s ome blood work and a urinalysis. Will check an echo and standing venous dopplers. Dave Cobb MD Date Name PROBNP, N TERMINAL URINALYSIS, RANDOM, MICROALB/CREATININE CBC (H/H, RBC, INDIC ES, WBC, PLT) THYROID PANEL WITH T SH, 3RD GENERATION COMPREHENSIVE METABO LIC PANEL, W/EGFR Venous Doppler Bilat eral LE - Reflux Complete Echo Complete Echo Holter Monitor 24 Hr HISTORY OF PROCEDURES Procedure Date Procedure Name Provider Procedure Notes S tatus EKG Dave Cobb MD completed
== END 2024-05-13 13:08 | disposition home or self-care (01) ==
PROVIDERS: Student in an Organized Health Care Education/Training Program; Emergency Provider Physician Assistant
DX: K52.9 Noninfective gastroenteritis and colitis, unspecified (principal); F41.9 Anxiety disorder, unspecified; R82.998 Other abnormal findings in urine
CPT/HCPCS: 36415; 74177; 80053; 81001; 83690; 83735; 85025; 87086; 96361; 96374; 96375; 99284; A9270; J2405; J2765; J7030; Q9967